=== PATIENT | female | born 1955 | race Caucasian/White ===

== ENCOUNTER 2020-12-13 10:37 | Outpatient (CLI) | payer MEDICARE, OTHER | END 2020-12-13 23:59 | disposition home or self-care (01) | LOC: RAD 10:37 | PROVIDERS: ATTEND Internal Medicine Hematology & Oncology | DX: C50.811 Malignant neoplasm of overlapping sites of right female breast (principal); C50.812 Malignant neoplasm of overlapping sites of left female breast; K76.0 Fatty (change of) liver, not elsewhere classified; K80.20 Calculus of gallbladder without cholecystitis without obstruction | CPT/HCPCS: 76700 ==